=== PATIENT | female | born 1930 | race Caucasian/White ===

== ENCOUNTER 2016-06-07 13:40 | Outpatient (CLI) | payer MEDICARE, OTHER ==
--- NOTE | 2016-06-07 15:45 | Diagnostic Imaging Report ---
[facility] [id number] [facility] [address] [place], [place]. [address] Report Submission Date: Jun 07, 2016 3:26:27 PM GENERAL OPHTHALMOLOGIST Patient Study Name: MERRICK HDZ Date: Jun 07, 2016 1:54:33 PM GENERAL OPHTHALMOLOGIST Modality Type: CR Gender: F Description: CHEST : 28 Institution: [facility] Physician: MG CHATMAN 2 views of the chest History: COUGH ON AND OFF X2 WEEKS, NON SMOKER Findings: No comparison studies Cardiomegaly Aorta is tortuous Pulmonary vascular congestion is seen. Peribronchial cuffing. There is no focal consolidation, pleural effusion or pneumothorax. Elevated diaphragm. Degenerative changes of the thoracic spine Impression: 1. Cardiomegaly with mild pulmonary vascular congestion. Tortuous aorta 2. Minimal basilar atelectasis 3. Peribronchial cuffing suggesting reactive airway disease Electronically signed on Jun 07, 2016 3:26:27 PM GENERAL OPHTHALMOLOGIST by: Crissy GARCIA
== END 2016-06-07 13:42 ==
LOC: NEPHRO 13:40
PROVIDERS: ATTEND Internal Medicine Nephrology
DX: J06.9 Acute upper respiratory infection, unspecified (principal); J20.9 Acute bronchitis, unspecified
CPT/HCPCS: 71020; 87400

== ENCOUNTER 2016-06-27 13:25 | Outpatient (CLI) | payer OTHER | END 2016-06-27 13:26 | LOC: NEPHRO 13:25 | PROVIDERS: ATTEND Internal Medicine Nephrology | DX: I11.0 Hypertensive heart disease with heart failure (principal); I50.9 Heart failure, unspecified | CPT/HCPCS: G0463 ==

== ENCOUNTER 2016-08-15 08:44 | Outpatient (CLI) | payer OTHER ==
[2016-08-15 09:19] LABS: BASOPHILS % 0.5 (0.0-1.5); EOSINOPHILS % 2.6 % (0.0-6.8); LYMPHOCYTES # 3.7 # k/uL (0.6-4.0); MEAN CORPUSCULAR HEMOGLOBIN 28.9 pg (28.0-34.0); MONOCYTES # 0.4 # k/uL (0.0-0.9); MONOCYTES % 3.4 % (0.0-11.0); NEUTROPHILS # 6.4 # k/uL (1.4-7.7)
[2016-08-15 09:25] LABS: eGFR (African) > 60; eGFR (Non-African) > 60
[2016-08-15 09:30] LABS: APPEARANCE,URINE Clear (CLEAR); COLOR,URINE Yellow (YELLOW); OCCULT BLOOD,URINE Negative (NEGATIVE); UROBILINOGEN URINE 0.2 Eu (0.2-1.0)
[2016-08-15 19:09] LABS: PROTEIN mg/dL 12 mg/dL
== END 2016-08-15 08:45 ==
LOC: LAB 08:44
PROVIDERS: ATTEND Internal Medicine Nephrology
DX: I10 Essential (primary) hypertension (principal); I50.9 Heart failure, unspecified
CPT/HCPCS: 36415; 80053; 80061; 81002; 82570; 83880; 84156; 85025

== ENCOUNTER 2017-08-14 12:59 | Outpatient (CLI) | payer OTHER | END 2017-08-14 13:00 | LOC: NEPHRO 12:59 | PROVIDERS: ATTEND Internal Medicine Nephrology | DX: I10 Essential (primary) hypertension (principal); I50.9 Heart failure, unspecified | CPT/HCPCS: G0463 ==

== ENCOUNTER 2019-03-14 09:55 | Emergency (ER) | payer OTHER ==
--- NOTE | 2019-03-14 09:57 | ED Physician Documentation ---
General Adult - HISTORIAN Historian: patient - HPI Stated Complaint: high blood pressure Chief Complaint: General Adult Onset: hours (2) Timing: better Severity: mild Further Comments: yes (She states she has had increased weakness for maybe a few weeks. She needs her to help her with walking and ADL's and this is not normal for her. Denies any fever. No nausea. She was noted to have high blood pressure this am 216/100(?) with no further symptoms . She states now she has some mild dizziness. No other complaints. She denies any chest pain. She denies any weakness) - ROS CONST: no problems - PAST HX Past History: hypertension Immunizations: UTD Allergies/Adverse Reactions: Allergies Allergy/AdvReac Type Severity Reaction Status Date / Time celecoxib [From Celebrex] Allergy Verified 03/14/19 10:03 Home Medications: Ambulatory Orders Medication Instructions Recorded Citalopram Hydrobromide 10 mg PO DAILY u2 10/09/17 [Citalopram Hbr] Diltiazem Er 180 mg PO DAILY av 10/09/17 Folic Acid 1 mg PO DAILY u2 10/09/17 Furosemide 20 mg PO BID u2 10/09/17 Cyanocobalamin (Vitamin B-12) 1,000 mcg PO DAILY u2 05/13/18 [B-12] - SOCIAL HX Smoking History: non-smoker Alcohol Use: none Drug Use: none - FAMILY HX Family History: No - VITAL SIGNS Vital Signs: Vital Signs Temp Pulse Resp BP Pulse Ox 154/51 09/29/18 00:20 - REVIEWED ASSESSMENTS Nursing Assessment Reviewed: Yes Vitals Reviewed: Yes Progress - Progress Progress: 1151: discussed care with Dr Farhan ARMENDARIZ General Adult Physical Exam - PHYSICAL EXAM GENERAL APPEARANCE: no distress EENT: eye inspection normal, ENT inspection normal, pharynx normal, no signs of dehydration NECK: normal inspection RESPIRATORY: no resp distress, chest non-tender, breath sounds normal CVS: reg rate & rhythm, heart sounds normal ABDOMEN: soft, no distension, non-tender BACK: normal inspection, no CVA tenderness SKIN: warm/dry, normal color EXTREMITIES: non-tender, normal range of motion, no evidence of injury, no edema NEURO: oriented X3 Discharge Clincal Impression: UTI (urinary tract infection) Qualifiers: Urinary tract infection type: site unspecified Hematuria presence: without hematuria Qualified Code(s): N39.0 - Urinary tract infection, site not specified Referrals: Murali Real MD [Primary Care Provider] - 2 Days Comments: 1. Macrobid 100 mg take 1 by mouth twice daily x 10 days 2. Increase fluids 3. Order PT for NH 4. Follow up with PCP in 2-4 days 5. Return to ER for any increased concerns culture was sent Condition: Stable Disposition: 01 HOME, SELF-CARE Decision to Admit: NO Date of Decison to Admit: 03/14/19 Decision Time: 11:53
[2019-03-14 10:34] LABS: BASOPHILS % 0.4 % (0.0-1.5)
[2019-03-14 10:48] LABS: eGFR (Non-African) 38
[2019-03-14 12:05] VITALS: BP 166/60
[2019-03-14 12:17] LABS: OCCULT BLOOD,URINE NEGATIVE (NEGATIVE); PH URINE 5.5 (5.0 - 8.0); UROBILINOGEN URINE 0.2 Eu (0.2-1.0)
== END 2019-03-14 12:04 | disposition home or self-care (01) ==
LOC: ED 09:55
DX: N39.0 Urinary tract infection, site not specified (principal); B96.20 Unspecified Escherichia coli [E. coli] as the cause of diseases classified elsewhere
CPT/HCPCS: 80053; 81002; 85025; 87086; 93005; 99283

== ENCOUNTER 2019-04-08 15:14 | Outpatient (CLI) | payer OTHER | END 2019-04-08 16:00 | LOC: NEPHRO 15:14 | PROVIDERS: ATTEND Internal Medicine Nephrology | DX: I10 Essential (primary) hypertension (principal); M17.0 Bilateral primary osteoarthritis of knee; N39.3 Stress incontinence (female) (male); R05 Cough | CPT/HCPCS: 99214; G0463 ==